=== PATIENT | female | born 1985 | race Caucasian/White ===

== ENCOUNTER 2024-10-11 14:28 | Emergency (ER) | payer SELFPAY ==
[2024-10-11 14:31] VITALS: BP 118/88; PULSE 93; RESP 18; TEMP 35.8; O2SAT 98; BMI 37.4
--- NOTE | 2024-10-11 15:41 | EX.ED.DYSGE1 ---
HPI History of Present Illness Chief Complaint: General Illness Detail of Chief Complaint: Anxiety due to possible rabies exposure Informant: patient Onset/Context/Timing Onset: Today and Hours Context: Sudden Onset Timing: Intermittent Quality: Detailed HPI narrative Location: HPI narrative Current Severity: HPI Maximum Severity: HPI narrative Worsened by: Nothing Relieved by: Nothing Associated Symptoms Associated Symptoms: None Narrative Narrative: Patient is a 39-year-old female. She presents because she is anxious for possible rabies exposure. She was visiting a friend. The friend's dog killed a raccoon and then licked her hands. She states she has superficial abrasions. She was not bit by the raccoon or bit by the dog. Patient has no other concerns or symptoms. Prior similar symptoms: No Recent Illness/Hospitalization: No PFSH PFSH Home Medications ?Medication ?Instructions ?Recorded ?Last Taken ?Type vits,calcium no.78-iron 1 tab PO DAILY 04/17/14 Unknown History fumarate-folic acid 29 mg-1 mg tablet (Prenatabs FA) Allergy/AdvReac Type Severity Reaction Status Date / Time enoxaparin (From Lovenox) Allergy Mild Hives Verified 10/11/24 14:31 Social History Smoking Status: Unknown if ever smoked EXAM Physical Exam Const Vital Signs: 10/11/24 14:31 Temperature 96.4 F L Temperature Source Temporal Pulse Rate 93 Respiratory Rate 18 Blood Pressure 118/88 H Blood Pressure Mean 98 Pulse Ox 98 Oxygen Delivery Method Room Air Positive well nourished and well developed Constitutional Narrative: Patient appears anxious. General Appearance ED: well developed HEENT HEENT Narrative: HEENT is grossly unremarkable. Resp normal respiratory effort Extremity Extremity Narrative: There is no obvious evidence of trauma to the hands. Neuro oriented x3 and CN's II-XII intact bilaterally Sensorium / Orientation: alert Psych Mood & Affect: anxious Skin no rashes or lesions noted, no wounds and skin turgor normal MDM MDM MDM Narrative Medical decision making narrative: Patient presents because of concern for rabies exposure. Patient was informed that she was not bit by the raccoon and the raccoon in all likelihood does not have rabies. The likelihood of transmission from killing a raccoon and being licked by the dog bit and killed the raccoon is 0 patient was asked if she had any other questions or concerns. She had none. Will discharge to home. Discharge Plan Triage Chief Complaint: General Illness ED Provider: Forrest Goode Dx/Rx/DC Orders Clinical Impression: Encounter for medical screening examination, Adult BMI 37.0-37.9 kg/sq m Prescriptions: No Action vit,[id number] [Prenatabs FA] 1 TABLET tablet 1 tab PO DAILY Primary Care Provider: Care Physician,No Primary Referrals: Johnny [Other] Teena Gomez MD [Med Staff - Residential Treatment Staff] - As Needed Care Physician,No Primary [Primary Care Provider] - Print Language: Indian Disposition Disposition: Home, Self Care
[2024-10-11 15:51] VITALS: BP 118/88; PULSE 93; RESP 18; TEMP 35.8; O2SAT 98
== END 2024-10-11 16:09 | disposition home or self-care (01) ==
LOC: ED 16:08
PROVIDERS: Emergency Provider Emergency Medicine; Referring Provider Emergency Medicine; Visit Provider Emergency Medicine
DX: Z13.89 Encounter for screening for other disorder (principal)
CPT/HCPCS: 99282